=== PATIENT | female | born 1955 | race Caucasian/White ===

== ENCOUNTER 2023-02-27 13:44 | Emergency (ER) | payer BC, MEDICARE ==
[2023-02-27 15:14] LABS: BASOPHILS ABSOLUTE AUTO 0.1 K/mm3 (0.0-0.2); BASOPHILS PERCENT AUTO 1.1 % (0.0-1.0); EOSINOPHILS ABSOLUTE AUTO 0.1 K/mm3 (0.0-0.4); EOSINOPHILS PERCENT AUTO 1.1 % (0.0-6.0); HEMATOCRIT 39.5 % (37.0-47.0); HEMOGLOBIN 12.6 gm/dl (12.0-16.0); IMMATURE GRAN ABSOLUTE AUTO 0.01 K/mm3 (0.00-0.05); IMMATURE GRAN PERCENT AUTO 0.1 % (0.0-0.4); LYMPHOCYTES ABSOLUTE AUTO 2.4 K/mm3 (1.0-4.8); LYMPHOCYTES PERCENT AUTO 31.9 % (24.0-44.0); MEAN CORPUSCULAR HEMOGLOBIN 26.4 pg (28.0-32.0); MEAN CORPUSCULAR HGB CONC 31.9 g/dl (32.0-36.0); MEAN CORPUSCULAR VOLUME 82.8 fl (83.0-99.0); MEAN PLATELET VOLUME 8.2 fl (9.4-12.3); MONOCYTES ABSOLUTE AUTO 0.7 K/mm3 (0.0-0.8); MONOCYTES PERCENT AUTO 9.7 % (0.0-8.0); NEUTROPHILS ABSOLUTE AUTO 4.3 K/mm3 (1.8-7.7); NEUTROPHILS PERCENT AUTO 56.1 % (41.0-71.0); PLATELET COUNT,PLT 325 K/mm3 (150-400); RED BLOOD CELL COUNT 4.77 M/mm3 (4.10-5.30); WHITE BLOOD CELL COUNT,WBC 7.59 K/mm3 (3.9-11.3)
[2023-02-27 15:53] LABS: A/G RATIO 1.2 (1-2); ALBUMIN 3.7 g/dl (3.4-5.0); ANION GAP 13.4 (5-15); BILIRUBIN TOTAL 0.2 mg/dL (0.2-1.0); BUN/CREATININE RATIO 14.4 (14-18); CALCIUM 9.3 mg/dL (8.5-10.1); CREATININE 0.9 mg/dL (0.55-1.02); EST CRCL DRUG DOSING (CG) 50.94 mL/min; POTASSIUM,K 4.4 mEq/L (3.5-5.1); PROTEIN TOTAL,TP 6.9 g/dl (6.4-8.2); T4 FREE 1.36 ng/dL (0.76-1.46); TSH 0.053 uIU/mL (0.358-3.74)
[2023-02-27] MEDS ORDERED: Iopamidol 755 Mg/ML 100 ML Bottle IVPUSH ONE (16:12)
[2023-02-27] MEDS ORDERED: Sodium Chloride 0.9% 10 ML Syringe FLUSH ONE (16:12)
[2023-02-27] MEDS ORDERED: Sodium Chloride 0.9% 100 ML IV SCH (16:15)
[2023-02-27 19:39] VITALS: BP 113/79; PULSE 86
== END 2023-02-27 18:30 | disposition home or self-care (01) ==
LOC: JD.ED 13:44
DX: R00.2 Palpitations (principal); R94.6 Abnormal results of thyroid function studies; E03.9 Hypothyroidism, unspecified; Z79.899 Other long term (current) drug therapy
CPT/HCPCS: 36415; 71046; 71275; 80053; 83735; 84439; 84443; 84484; 85025; 85379; 93005; 93246; 93970; 99285; J3490; Q9967; 93010; 99284